=== PATIENT | female | born 1950 | race Caucasian/White ===

== ENCOUNTER 2019-02-09 15:57 | Inpatient (IN) ==
--- NOTE | 2019-02-09 16:54 | Diag Imaging Result Doc PS360 ---
EXAM: XRAY HIP UNILATERAL RT HISTORY: fall TECHNIQUE: Two views COMPARISON: None. FINDINGS: A subtle impacted fracture of the lateral aspect of right femoral neck is suspected. Additionally, there are may be a nondisplaced fracture of the lateral trochanter. No dislocation. Correlate clinically. Consider CT scan right hip. IMPRESSION: Suspect slightly impacted fracture of the right lateral femoral neck and possibly greater trochanter. Correlate clinically. Consider CT right hip. Electronically signed by Marianna Willingham 02/09/2019 4:51 PM
--- NOTE | 2019-02-09 16:55 | Diag Imaging Result Doc PS360 ---
EXAM: FEMUR MIN 2 VIEWS RIGHT HISTORY: fall TECHNIQUE: Two views. COMPARISON: None. FINDINGS: Slightly impacted. Fracture of the right femoral neck and possibly greater trochanter in history. The remainder of the femur shows no abnormalities. No dislocation. No effusion. IMPRESSION: Suspect mildly impacted right femoral neck fracture. Electronically signed by Marianna Willingham 02/09/2019 4:53 PM
--- NOTE | 2019-02-09 17:06 | PROVIDER DOCUMENTATION ---
This chart was entered by Citlaly Houston Scribe, acting as scribe for Jack Pardo MD. 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 Right side is non weight baring, minor ab rasion on R elbow. Denied R arm pain, head injury, or LOC. Quality of Pain: reports: aching Severity in ED: moderate Onset/Duration: just prior to arrival Timing: still present Modifying Factors: improves with: immobilization. worse with: movement Similar Symptoms Previously?: No Recently seen or treated by another doctor?: No - FALL INJURY Location of Pain/Injury: reports: other (Right hip) Pain Radiation: reports: no radiation Reason for Fall: reports: tripped (on curb) Loss of Consciousness: no loss of consciousness Review of Systems - Adult - REVIEW OF SYSTEMS - ADULT Constitutional: denies: fever, fatique, night sweats Eyes: reports: no symptoms reported Ears, Nose, Mouth & Throat: reports: no symptoms reported Cardiovascular: reports: no symptoms reported Respiratory: reports: no symptoms reported Gastrointestinal: reports: no symptoms reported Genitourinary: reports: no symptoms reported Musculoskeletal: reports: see HPI, joint pain (R hip) Integumentary: reports: other (r elbow) Neurological: denies: dizziness/vertigo, headache/migraines, slurred speech Psychiatric: reports: no symptoms reported Endocrine: reports: no symptoms reported Hematologic/Lymphatic: reports: no symptoms reported Allergic/Immunologic: reports: no symptoms reported All Other Systems: Reviewed and Negative Past History - Adult - PAST MEDICAL HISTORY-ADULT Review of Records: reports: Nursing Assessment Review, Medications Reviewed Major Childhood Illnesses: reports: denies history Cardiovascular: reports: denies history Respiratory: reports: denies history Gastrointestinal: reports: denies history Obstetrical/Gynecological: reports: denies history Genitourinary: reports: denies history Musculoskeletal: reports: denies history Neurological: reports: denies history Endocrine/Immune: reports: denies history Other Conditions: reports: denies history - IMMUNIZATION STATUS Childhood Immunizations: See Nurse Assessment Flu Vaccine: See Nurse Assessment - FAMILY HISTORY Family History: reviewed, not pertinent - SOCIAL HISTORY Smoking: non-smoker Physical Exam-Injury Related - Physical Exam-Injury Related Initial Vital Signs Reviewed: Yes General Appearance: appears well, alert, moderate distress Immobilization?: negative: backboard, C-collar Eyes: PERRL/EOMI, pink conjunctivae Head, Ears, Nose, Mouth & Throat: normocephalic/atraumatic, moist mucous membranes, normal ENT inspection Neck: non-tender, full range of motion, supple, normal inspection. negative: muscle spasm, nexus criteria negative, pain on movement, subcutaneous emphysema, swelling, trachial deviation Respiratory: chest non-tender, lungs clear, normal breath sounds, no pleuratic chest pain, no respiratory distress, no accessory muscle use Cardiovascular: normal peripheral pulses, regular rate, rhythm, no edema, no gallop, no JVD, no murmur Peripheral Pulses: dorsalis-pedis (R): 2+ Back Exam: normal inspection Extremity: other (pt has bilateral legs raised, limited range of motion to R hip due to severe pain, p is non weight baring on R side). 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, grossly normal Psych/Mental Status: normal mood/affect, normal thought content, normal thought process, oriented x 3 - Glascow Coma Score Best Eye Response ([place]): (4) open spontaneously Best Verbal Response ([place]): (5) oriented Best Motor Response ([place]): (6) obeys commands [place] Total: 15 Progress - PLAN OF CARE/RESULTS Progress/Plan/Lab Results: Vital Signs - 8 hr 02/09/19 18:36 02/09/19 18:50 02/09/19 19:00 Temperature 98.7 F Pulse Rate 85 Respiratory Rate 18 Blood Pressure 164/81 O2 Sat by Pulse Oximetry 99 99 98 02/09/19 19:02 02/09/19 19:10 02/09/19 19:29 Temperature Pulse Rate 80 Respiratory Rate 20 Blood Pressure 173/82 O2 Sat by Pulse Oximetry 97 98 96 02/09/19 19:30 02/09/19 19:40 02/09/19 19:50 Temperature Pulse Rate Respiratory Rate Blood Pressure O2 Sat by Pulse Oximetry 97 96 96 02/09/19 20:00 02/09/19 20:10 02/09/19 20:20 Temperature Pulse Rate Respiratory Rate Blood Pressure O2 Sat by Pulse Oximetry 95 97 96 02/09/19 20:30 02/09/19 20:40 02/09/19 20:50 Temperature Pulse Rate Respiratory Rate Blood Pressure O2 Sat by Pulse Oximetry 96 96 96 02/09/19 21:00 02/09/19 21:10 02/09/19 21:20 Temperature Pulse Rate Respiratory Rate Blood Pressure O2 Sat by Pulse Oximetry 95 96 96 02/09/19 21:30 02/09/19 21:40 02/09/19 21:50 Temperature Pulse Rate Respiratory Rate Blood Pressure O2 Sat by Pulse Oximetry 96 98 97 Laboratory Results - last 24 hr 02/09/19 02/09/19 02/09/19 19:00 19:00 19:00 WBC 8.99 RBC 4.52 Hgb 14.2 Hct 41.9 MCV 92.7 MCH 31.4 H MCHC 33.9 RDW Std Deviation 12.8 Plt Count 172 MPV 10.9 H Immature Gran % (Auto) 0.2 Neut % (Auto) 71.3 Lymph % (Auto) 20.9 [place] % (Auto) 7.0 Eos % (Auto) 0.4 Baso % (Auto) 0.2 Immature Gran # (Auto) 0.02 Neut # (Auto) 6.40 Lymph # (Auto) 1.88 [place] # (Auto) 0.63 H Eos # (Auto) 0.04 Baso # (Auto) 0.02 PT 13.4 INR 0.94 PTT (Actin FS) 36.3 Sodium 145 Potassium 3.9 Chloride 109 H Carbon Dioxide 23 L Anion Gap 13 BUN 17 Creatinine 0.7 Estimated GFR/1.73 m2 > 60 BUN/Creatinine Ratio 24 Glucose 106 H Calculated Osmolality 291 Calcium 9.4 Total Bilirubin 0.54 AST 14 ALT 8 L Alkaline Phosphatase 78 Total Protein 7.3 Albumin 4.4 Globulin 2.9 Albumin/Globulin Ratio 1.5 Orders Category Date Time Status Admit - [facility] Routine AdmDCTranf 02/09/19 23:04 Active Activity - Up with Assistance ORDERED Care 02/09/19 23:04 Active Intake and Output-Strict ORDERED Care 02/09/19 23:04 Active Nursing- MD Consult Request ROUTINE Care 02/09/19 23:04 Active Vital Signs Order Q 8-HR ASSESS Care 02/09/19 23:04 Active Z-Document. for Tele Applied ORDERED Care 02/09/19 23:04 Completed Physician/Provider Consults Routine Cons 02/09/19 23:04 Ordered Clear Liquid Diet Diet 02/09/19 20:08 Completed NPO Diet 02/10/19 00:01 Active CHEST-2 VIEWS [RAD] Stat Exams 02/09/19 18:[address] PELVIS W/O CONTRAST [CT] Stat Exams 02/09/19 17:11 Completed FEMUR MIN 2 VIEWS RIGHT [RAD] Stat Exams 02/09/19 16:06 Completed XRAY HIP UNILATERAL RT [RAD] Stat Exams 02/09/19 16:06 Completed BASIC METABOLIC PANEL [CHEM] Routine Lab 02/10/19 06:00 Ordered CBC WITH DIFF [HEME] Routine Lab 02/10/19 06:00 Ordered CBC WITH ELECTRONIC DIFF [HEME] Stat Lab 02/09/19 19:00 Completed COMPREHENSIVE METABOLIC PANEL [CHEM] Stat Lab 02/09/19 19:00 Completed PROTIME WITH INR [COAG] Stat Lab 02/09/19 19:00 Completed PTT [COAG] Stat Lab 02/09/19 19:00 Completed Cyclobenzaprine [Flexeril] Med 02/09/19 19:08 Discontinued 10 mg PO NOW ONE Morphine Med 02/09/19 23:04 Active 4 mg IV Q4H PRN PRN Ondansetron [Zofran] Med 02/09/19 23:04 Active 4 mg IV Q4H PRN PRN Telemetry [OM.EQ] Routine Oth 02/09/19 23:04 Active EKG [EKG] Stat Ther 02/09/19 18:40 Ordered Transfer/Admit Order [TRANSFER] Routine Transfer 02/09/19 21:28 Completed A/P: Fracture of greater trochanteric Right femur. Pain Result Diagrams: 02/09/19 19:00 02/09/19 19:00 - XRAY 1 XRAY: Bilateral XRAY Study: Hip Impression: Abnormal ( IMPRESSION: Suspect slightly impacted fracture of the right lateral femoral neck and possibly greater trochanter. Correlate clinically. Consider CT right hip. Electronically signed by Marianna Willingham 02/09/2019 4:51 PM) 2 XRAY: Right XRAY Study: Femur Impression: Abnormal ( EXAM: FEMUR MIN 2 VIEWS RIGHT HISTORY: fall TECHNIQUE: Two views. COMPARISON: None. FINDINGS: Slightly impacted. Fracture of the right femoral neck and possibly greater trochanter in history. The remainder of the femur shows no abnormalities. No dislocation. No effusion. IMPRESSION: Suspect mildly impacted right femoral neck fracture. Electronically signed by Marianna Willingham 02/09/2019 4:53 PM 02/09/19 1653 Interpreting Physician: Marianna Willingham MD Dictated Date/Time: 02/09/19 1644 cc: Gilmer Hinton MD; None,PCP) - CONSULTS/PCP/HOSPITALIST Notification #1 *Consult/PCP/Hospitalist*: Dr Wyman Time Discussed: 18:00 Consult Disposition: Admit #2 Consult: Dr griffin Time Discussed: 18:30 Consult Disposition: Admit Departure - Departure Date of Disposition Decision: 02/09/19 Time of Disposition Decision: 19:00 DIAGNOSIS: Femur fracture Disposition: ADMITTED INPATIENT 09 Certified Medical Emergency: Emergent Condition: Stable - Critical Care Note This patient required my direct & personal management of CC.: No Attestation - Physician/ MAURY Attestation Patient care was provided by Advanced Practice Provider:: No The physician spent face to face time with patient:: Yes Advanced Practice Provider documentation review:: Supervising physician onsite and consulted in the evaluation and care of this patient. The physician did have a face to face encounter with the patient. This chart was documented by the indicated scribe, (Citlaly Houston Scribe) and accurately reflects the services I performed and decisions made by me, Jack Pardo MD, as attested by the provider's signature.
--- NOTE | 2019-02-09 18:23 | Diag Imaging Result Doc PS360 ---
EXAM: CT PELVIS W/O CONTRAST HISTORY: fall TECHNIQUE: CT bony pelvis without contrast COMPARISON: None. FINDINGS: There is a fracture through the greater trochanter of the right femur. There is mild displacement. The fracture line extends to the upper portion of the femoral neck, but does not appear to involve the femoral neck. No other fracture or dislocation. No widening of the pubic symphysis. IMPRESSION: Large bone fragment involving the greater trochanter of the right hip This exam was performed using automated exposure control, adjustment of mA or kV according to patient size, and/or use of iterative reconstruction technique. Electronically signed by Gerry Saldana 02/09/2019 6:20 PM
[2019-02-09] MEDS ORDERED: FLEXERIL PO ONE (19:08)
[2019-02-09 19:21] LABS: BASO# 0.02 X1000 (0.0-0.2); BASO% 0.2 % (0.0-0.8); EOS# 0.04 X1000 (0.0-0.7); EOS% 0.4 % (0.0-10.0); HEMATOCRIT 41.9 % (37.0-47.0); HEMOGLOBIN 14.2 g/dL (12.0-16.0); IMM GRAN# 0.02 X1000 (0.0-0.04); IMM GRAN% 0.2 % (0.0-0.5); LYMPH# 1.88 X1000 (1.2-3.4); LYMPH% 20.9 % (20.5-51.1); MCH 31.4 PG (27-31); MCHC 33.9 g/dL (33-37); MCV 92.7 FL (81-99); MONO# 0.63 X1000 (0.11-0.59); MPV 10.9 FL (7.4-10.4); NEUT% 71.3 % (42.2-75.2); PLT 172 X1000 (130-400); RBC 4.52 XMIL (4.2-5.4); RDW 12.8 % (11.5-14.5); WBC 8.99 X1000 (4.8-10.8)
[2019-02-09 19:33] LABS: INR 0.94; PROTIME 13.4 Seconds (11.0-16.0)
[2019-02-09 19:34] LABS: PTT 36.3 Seconds (22.3-41.8)
[2019-02-09 19:46] LABS: AGAP 13; ALB/GLOB RATIO 1.5; ALBUMIN 4.4 g/dL (3.5-5.0); ALKALINE PHOSPHATASE 78 U/L (32-104); BUN 17 mg/dL (8-22); CALCIUM 9.4 mg/dL (8.8-10.2); CHLORIDE 109 mmol/L (98-107); COSMO 291; CREATININE 0.7 mg/dL (0.5-0.9); ESTIMATED GFR > 60; GLUCOSE 106 mg/dL (70-104); GOT 14 U/L (10-30); GPT 8 U/L (10-36); POTASSIUM 3.9 mmol/L (3.5-5.1); SODIUM 145 mmol/L (136-145); TCO2 23 mmol/L (25-35); TOTAL BILIRUBIN 0.54 mg/dL (0.20-1.00); TOTAL PROTEIN 7.3 g/dL (6.3-8.3)
--- NOTE | 2019-02-09 19:47 | Diag Imaging Result Doc PS360 ---
EXAM: CHEST-2 VIEWS HISTORY: fall pre surgery TECHNIQUE: Chest three views COMPARISON: None. FINDINGS: The lungs are hyperexpanded. The heart is borderline mildly prominent. The vessels are small. There are no infiltrates. No pleural effusions. IMPRESSION: Emphysema Electronically signed by Gerry Saldana 02/09/2019 7:44 PM
--- NOTE | 2019-02-09 21:45 | HISTORY AND PHYSICAL ---
PRIMARY CARE PHYSICIAN: None. CHIEF COMPLAINT: Fall. HISTORY OF PRESENTING ILLNESS: A 68-year-old female without any significant past medical history was apparently walking outside [employer] when somehow she got tripped over a raised area on the grounds. She stumbled and she fell on to her right hip region. She developed moderate amount of pain and subsequently had come to the emergency department. In the ED she was evaluated. She had imaging done which showed a fracture of the greater trochanter of the right femur. Her case was discussed with Orthopedics who recommended the patient be admitted for further evaluation management. At the time of my examination, patient denied any headache, vision changes, fevers, chills, chest pain, shortness of breath, hemoptysis, melena, weight changes but complained of right hip region pain. PAST MEDICAL HISTORY: None. PAST SURGICAL HISTORY: Hysterectomy. ALLERGIES: Sulfa and latex. CURRENT MEDICATIONS: None. SOCIAL HISTORY: 40 pack year history of smoking. Admits to social alcohol use. Denies any illicit drug use. FAMILY HISTORY: Positive for coronary disease in mother. REVIEW OF SYSTEMS: Fourteen point review system is as in HPI. Other systems negative. PHYSICAL EXAMINATION: GENERAL: Cooperative, friendly female. She is resting comfortably now. VITAL SIGNS: Temperature 98.1 degrees, pulse 82, respirations 20, blood pressure 165/81. HEENT: Extraocular movements intact. PERRLA. NECK: No masses. CHEST: Clear to auscultation. CARDIOVASCULAR: Regular rate and rhythm. ABDOMEN: Soft. Positive bowel sounds. EXTREMITIES: Right hip region tenderness. NEUROLOGIC: She is awake, alert, oriented x3. : No bladder distention. SKIN: Warm. LABORATORIES AND STUDIES: WBC is 8.99, hemoglobin 14.2, hematocrit 41.9, platelets 172,000. Sodium 145, potassium 3.9, chloride 103, CO2 23, BUN is 17, creatinine 0.7, glucose 106. Pelvic CT shows a fracture the greater trochanter of the right femur. ASSESSMENT: A 68-year-old female without any significant past medical apparently was walking outside [employer] earlier today. She somehow stumbled and fell onto her right hip region. She was brought to the emergency department. She had imaging done which did show a fracture of the greater trochanter of the right femur. Her case was discussed with Orthopedics who recommended admission for further management . 1. fracture of the greater trochanter of the right femur. 2. Ongoing tobacco abuse. PLAN: 1. We will admit patient to medical floor with telemetry. 2. Continue with pain control, antiemetics and gentle hydration. 3. Orthopedics already consulted. 4. Counseled patient on smoking cessation. 5. Continue with DVT prophylaxis with SCDs. 6. We will continue to follow and reassess and make further recommendation based on patient's clinical course. cc: Manohar Walsh MD MTDD
[2019-02-09] MEDS ORDERED: ZOFRAN IV PRN (23:04)
[2019-02-09] MEDS ORDERED: MORPHINE IV PRN (23:04)
[2019-02-10 04:59] LABS: URINE SOURCE CLEAN CATCH
[2019-02-10 05:35] LABS: BILIRUBIN URINE NEGATIVE (NEGATIVE); BLOOD URINE NEGATIVE (NEGATIVE); COLOR YELLOW; GLUCOSE URINE NEGATIVE (NEGATIVE); KETONE URINE NEGATIVE (NEGATIVE); LEUKOCYTES URINE NEGATIVE (NEGATIVE); NITRITE URINE NEGATIVE (NEGATIVE); PH URINE 6.5; PROTEIN URINE NEGATIVE (NEGATIVE); SP GRAVITY URINE 1.007; TURBIDITY URINE CLEAR (CLEAR); UR EPITHELIAL CELLS <10 /HPF (<10); URINE BACTERIA NEGATIVE /HPF; URINE RBC <10 /HPF (<10); URINE WBC <10 /HPF (<10); UROBILINOGEN URINE NORMAL (NORMAL)
[2019-02-10 06:44] LABS: BASO# 0.02 X1000 (0.0-0.2); BASO% 0.4 % (0.0-0.8); EOS# 0.09 X1000 (0.0-0.7); EOS% 1.6 % (0.0-10.0); HEMATOCRIT 38.4 % (37.0-47.0); HEMOGLOBIN 12.9 g/dL (12.0-16.0); LYMPH# 1.49 X1000 (1.2-3.4); LYMPH% 27.1 % (20.5-51.1); MCH 31.2 PG (27-31); MCHC 33.6 g/dL (33-37); MONO# 0.56 X1000 (0.11-0.59); MONO% 10.2 % (1.7-9.3); MPV 11.2 FL (7.4-10.4); NEUT# 3.34 X1000 (1.4-6.5); NEUT% 60.7 % (42.2-75.2); PLT 134 X1000 (130-400); RBC 4.13 XMIL (4.2-5.4); RDW 12.7 % (11.5-14.5)
[2019-02-10 07:01] LABS: AGAP 9; BUN 12 mg/dL (8-22); CHLORIDE 108 mmol/L (98-107); COSMO 283; CREATININE 0.7 mg/dL (0.5-0.9); ESTIMATED GFR > 60; GLUCOSE 108 mg/dL (70-104); SODIUM 142 mmol/L (136-145); TCO2 25 mmol/L (25-35)
--- NOTE | 2019-02-10 13:17 | CONSULTATION ---
DATE OF CONSULTATION: 02/10/2019 CHIEF COMPLAINT: Fall. HISTORY OF PRESENT ILLNESS: This is a 68-year-old female who was walking [place] [employer], and she tripped and fell on the ground on her right hip. She reports she immediately had pain in that hip and was unable to walk normally. She presented to the emergency department at [place] where x-rays were performed. X-ray showed an intertrochanteric fracture of the right femur. Orthopedics was consulted to see the patient. PAST MEDICAL HISTORY: The patient denies any past medical history and does not take any medications. PAST SURGICAL HISTORY: She has had hysterectomy. ALLERGIES: She is allergic to sulfa and latex. CURRENT MEDICATIONS: None. SOCIAL HISTORY: The patient reports social alcohol use. She denies drug use. She reports she does smoke daily. FAMILY HISTORY: Positive for CAD. REVIEW OF SYSTEMS: Fourteen point review of systems was performed and pertinent positives were listed in HPI. PHYSICAL EXAMINATION: General: Patient is awake, alert, and sitting in the bed cooperative. Vital Signs: Temperature 98.4 degrees, pulse rate 73, respiratory rate 16, blood pressure 135/51, and oxygen is 97% on room air. HEENT: Head is atraumatic, normocephalic. Eyes are equal, round, and reactive. Neck: Supple. Chest: There is equal expansion rise and fall. Cardiovascular: Regular rate and rhythm. Abdomen: Soft and nontender. Extremities: There is right anterior joint line tenderness to the hip. There is negative Homans sign. There is no redness or signs of infection. There are good pedal pulses. There is slight shortening of the right leg with external rotation. LABORATORY DATA: White blood cell 5.5, hemoglobin 12.9, hematocrit 38.4, and platelets 134,000. INR 0.94. Sodium 142, potassium 4.0, chloride 108, BUN 12, creatinine 0.7, and glucose 108. Urinalysis negative. ASSESSMENT: Right intertrochanteric fracture of the right femur. PLAN: We will plan on placing a trochanteric fixation nail into the right femur sometime today. The patient agrees with this plan. The risks and benefits of surgery was went over with the patient. She wishes to proceed. The risks include , damage to tendon, nerve or blood vessel, and also the risk of worsening pain. Dictated by ALMA DELIA Van for Nilton Syed MD cc: ALMA DELIA Van MD
[2019-02-10] MEDS ORDERED: KEFZOL 1 GM/D5W 1 GM/50 ML IVPB ONE (14:37)
[2019-02-10] MEDS ORDERED: DIPRIVAN 1% ONE ×2 (14:38→14:53)
[2019-02-10] MEDS ORDERED: FENTANYL ONE (14:46)
[2019-02-10] MEDS ORDERED: EPHEDRINE ONE (15:12)
[2019-02-10] MEDS ORDERED: XYLOCAINE-MPF 2% ONE (15:12)
[2019-02-10] MEDS ORDERED: DECADRON ONE (15:17)
[2019-02-10] MEDS ORDERED: ZOFRAN ONE (15:17)
--- NOTE | 2019-02-10 15:45 | OPERATIVE NOTE ---
PROCEDURE DATE: 02/10/2019 PREOPERATIVE DIAGNOSIS: Intertrochanteric right hip fracture. POSTOPERATIVE DIAGNOSIS: Intertrochanteric right hip fracture. PROCEDURE: Closed reduction, short TFN fixation right hip. SURGEON: Arun Syed MD. AMERICAN STUDIES PROFESSOR: ALMA DELIA Van. Mr. Kemp was necessary for proper retraction and manipulation of the leg during the case. ANESTHESIA: Spinal. COMPLICATION: None. PROCEDURE IN DETAIL: This 68-year-old female presents for surgical stabilization of right hip. Risks, benefits, and no guarantees were discussed. She was taken to the operating room and satisfactory anesthesia obtained. She was transferred to the [place] table and the C-arm used to verify the fracture. A fracture through the greater trochanter which extended down into the intertrochanteric region but not fully across the calcar was noted on both fluoroscopic imaging, as well as preop CT and x-rays. This was felt to be fracture at risk for propagation throughout the calcar and stabilization elected after discussion with the patient. After a proper time-out, the hip was prepped and draped in usual sterile fashion. The C-arm was used to localize an entry portal roughly 3-4 cm above the lesser trochanter and a small incision made. TFN guide pin was advanced through the tip of the trochanteric fracture and down the intramedullary canal. This was reamed with the injury reamer. A short TFN nail was then inserted through the proposed tunnel intramedullary. An accessory lateral portal was made distal to the entry portal for placement of the helical blade. Under multiplanar image guidance using the provided guides, a pin was placed across the nail and into the central aspect of the femoral neck and head with care taken to avoid any articular penetration. This was measured and reamed and an 85 length helical blade inserted into the proximal femur. The guide was then used to place a static distal locking screw through the accessory lateral incision measuring roughly 36 mm in length. Afterwards, the guide was removed and the fluoroscopic unit used to visualize acceptable reduction and hardware placement without any joint penetration. The wounds were then irrigated and closed in layers with 2-0 Vicryl and skin jamilah. Sterile dressings completed the closure and the patient was recovered from anesthesia and transferred to the recovery room in stable condition. No intraoperative complications were noted. Instrument count and sponge count was correct at the time of closure. cc: Nilton Syed MD
[2019-02-10] MEDS ORDERED: MILK OF MAGNESIA PO PRN (15:54)
[2019-02-10] MEDS ORDERED: ZOFRAN IV PRN (15:54)
[2019-02-10] MEDS ORDERED: MORPHINE IV PRN (15:54)
[2019-02-10] MEDS ORDERED: HALDOL IV PRN (16:00)
[2019-02-10] MEDS: NS 1,000 ML IV SCH (16:51)
[2019-02-10] MEDS: OXY IR PO PRN (18:12)
--- NOTE | 2019-02-10 18:12 | PROGRESS NOTE ---
DATE: 02/10/2019 SUBJECTIVE: This afternoon, Ms. Adams referred to be doing fairly okay. She just came out of surgery. OBJECTIVE: Vitals: Blood pressure is 132/60, pulse 88, respiration is 20, temperature 97.8 degrees, and the patient was saturating about 98% on room air. General: Ms. Adams is a 68-year- old female. She is in bed, no distress. Mucosa is pink and moist. Anicteric. Acyanotic. Neck is supple. No JVD. Chest was clear to auscultation. Cardiovascular: Regular rate and rhythm. No murmurs, no rubs, no gallops. Gastrointestinal: Abdomen was soft, nontender. Bowel sounds present. Genitourinary was unremarkable. Extremities: No pedal edema. Distal pulses are present. Musculoskeletal: There is a fresh sterilely covered surgical wound on the right lateral hip. Central Nervous System: Patient is awake and alert and oriented. IMAGING STUDIES: Have been reviewed. A pelvic CT scan before surgery did reveal a large bone fragment involving the greater trochanteric of the right hip. Surgical report has been reviewed. The patient is status post closed reduction with short TFN fixation of right hip. ASSESSMENT: 1. Intertrochanteric right hip fracture status post closed reduction with short trochanteric fixation nail (TFN) fixation. This was done by Dr. Syed. 2. Ongoing tobacco abuse. Patient has been counseled. 3. Mild clinical volume depletion. We will continue with gentle hydration. PLAN: In general, I think Ms. Adams is doing fairly okay. She is just immediate post orthopedic intervention. She seems to be doing well. We will continue with the gentle hydration overnight, get physical therapy to start working with her tomorrow and follow with further recommendations from Orthopedic team. cc: Alfredo Mulligan MD [facility]
[2019-02-10] MEDS: COLACE PO SCH (21:22)
[2019-02-10] MEDS: TYLENOL PO SCH (21:22)
[2019-02-10] MEDS: KEFZOL 1 GM/D5W 1 GM/50 ML IVPB IV SCH (22:02)
[2019-02-11] MEDS: TYLENOL PO SCH ×3 (04:56→21:16)
[2019-02-11] MEDS: NS 1,000 ML IV SCH ×2 (05:03→16:06)
[2019-02-11] MEDS: OXY IR PO PRN (05:29)
[2019-02-11] MEDS: KEFZOL 1 GM/D5W 1 GM/50 ML IVPB IV SCH ×2 (05:30→15:10)
[2019-02-11] MEDS: XARELTO PO SCH (05:30)
[2019-02-11 06:24] LABS: AGAP 11; BUN 11 mg/dL (8-22); CHLORIDE 103 mmol/L (98-107); COSMO 274; CREATININE 0.8 mg/dL (0.5-0.9); ESTIMATED GFR > 60; GLUCOSE 115 mg/dL (70-104); POTASSIUM 4.1 mmol/L (3.5-5.1); SODIUM 137 mmol/L (136-145); TCO2 23 mmol/L (25-35)
[2019-02-11 07:49] LABS: HEMATOCRIT 35.9 % (37.0-47.0); HEMOGLOBIN 11.7 g/dL (12.0-16.0)
--- NOTE | 2019-02-11 08:00 | PROGRESS NOTE ---
DATE: 02/11/2019 Ms. Adams is seen status post surgical fixation of her intertrochanteric hip fracture. At the present time, she is afebrile with stable vital signs. Her bandages are clean and dry. She can be mobilized partial weightbearing without other restrictions. She can be transferred to the rehab center when a bed is available. I will need to see her in roughly 10 to 14 days for staple removal and x-rays. She can follow up with me in the interim for any additional needs or concerns. We will be available upon request at this point. cc: Nilton Syed MD
[2019-02-11] MEDS: FERROUS SULFATE PO SCH (09:10)
[2019-02-11] MEDS: PERIDEX MT SCH ×2 (09:10→21:16)
--- NOTE | 2019-02-11 18:06 | PROGRESS NOTE ---
DATE: 02/11/2019 SUBJECTIVE: Today Ms. Adams refers to be doing a lot better. She has been able to get up and take a few steps, and she was sitting up in a chair at the time of the encounter. She denies any complaints. The patient has also been seen early on today by Orthopedics. OBJECTIVE: Vital signs: Blood pressure is 109/49, pulse is 72, respirations 16, temperature 98.5 degrees. General: Ms. Adams is a 68-year-old female. She was sitting up in a chair. She was not in any distress. Mucosa is pink and moist. Anicteric. Acyanotic. Neck is supple. Chest has good air entry bilateral. There were no crepitations, no rhonchi. Cardiovascular: Regular rate and rhythm. No murmurs, no rubs, no gallops. Abdomen: Soft, nontender. Bowel sounds are present. Extremities: No pedal edema. The right hip still has the sterile dressing over the surgical sites. They still look clean. LABORATORY DATA: Hemoglobin is 11.7, hematocrit of 35.9. Chemistry is also reviewed and is completely normal. ASSESSMENT: 1. Intertrochanteric right hip fracture status post closed reduction and short trochanteric fixation nail (TFN) fixation by Dr. Syed. Today is day 1 postoperatively. The patient is doing a lot better, having physical therapy as well. 2. Ongoing tobacco abuse. Patient has been counseled. 3. Clinical volume depletion, improved. DISPOSITION: We are pending rehabilitation arrangement for Ms. Adams to be discharged. Hopefully we can get her out tomorrow. cc: Alfredo Mulligan MD
[2019-02-11] MEDS: NICODERM PATCH TD SCH (21:16)
[2019-02-11] MEDS: COLACE PO SCH (21:16)
[2019-02-12] MEDS: XARELTO PO SCH ×2 (04:33→05:59)
[2019-02-12] MEDS: TYLENOL PO SCH ×2 (04:33→12:32)
[2019-02-12] MEDS: NS 1,000 ML IV SCH (05:12)
[2019-02-12 06:32] LABS: HEMATOCRIT 33.5 % (37.0-47.0); HEMOGLOBIN 10.9 g/dL (12.0-16.0)
[2019-02-12] MEDS: NICODERM PATCH TD SCH (09:29)
[2019-02-12] MEDS: FERROUS SULFATE PO SCH (09:29)
[2019-02-12] MEDS: PERIDEX MT SCH (09:29)
--- NOTE | 2019-02-12 15:29 | DISCHARGE SUMMARY ---
ADMISSION DATE: 02/09/2019 DISCHARGE DATE: 02/12/2019 DISPOSITION: [facility]. FOLLOW-UP: Will be with Dr. Syed. CONSULTATION DURING THIS ADMISSION: Orthopedics was consulted. Patient was seen by Dr. Syed. INVASIVE PROCEDURES DONE DURING THIS ADMISSION: A closed reduction and short TFN fixation right hip was done by Dr. Syed on 02/10/2019. IMAGING STUDIES OF SIGNIFICANCE: X-ray of the right femur showed suspected mildly impacted right femoral neck fracture. X-ray of the hip showed the same as above. A pelvic CT scan did show a large bone fragment involving the greater trochanter of the right hip. A chest x-ray did show emphysema. ADMISSION DIAGNOSES: 1. Fracture of the greater trochanteric of the right femur. 2. Ongoing tobacco abuse. DIAGNOSES AT THE TIME OF DISCHARGE: 1. Right intertrochanteric hip fracture status post closed reduction and short trochanteric fixation nail (TFN)fixation by Dr. Syed. Today is day 2 postoperative. The patient is doing extremely well. She has been getting physical therapy, and she will be going to rehabilitation. 2. Ongoing tobacco abuse. Patient has been counseled. 3. Emphysema. The patient is clinically asymptomatic. She has been advised to follow up with Pulmonary Medicine, and tobacco cessation has been discussed. 4. Clinical volume depletion, improved. DISCHARGE MEDICATIONS: 1. Oxycodone 5 mg p.o. q.3 h. p.r.n. 2. Iron sulfate 325 p.o. daily. 3. Rivaroxaban 10 mg p.o. q.24 h. 4. Colace 200 p.o. at bedtime. PRESENTING COMPLAINT: Fall. HISTORY OF PRESENTING COMPLAINT: Ms. Adams is a 68-year-old female with seemingly no past medical history ,except for tobacco use, who came to the emergency department on 02/09/2010 19 after a trip and falling outside a [employer] store. The patient was not able to get up, was brought to the emergency department where she was initially evaluated, and was found to have a broken right hip. Ms. Adams was subsequently admitted for further medical care. HOSPITAL COURSE: The patient was admitted to the medical floor, was adequately hydrated and prepped for surgery. Orthopedics evaluated Ms. Adams on the same day. Dr. Syed subsequently took her to OR intervention was successful. Postoperatively Ms. Adams was able to do a couple sessions of physical therapy here in the hospital, which she tolerated well. During the hospital course, we did stress the findings of the chest x-ray, which was the emphysema, and the need for her to do tobacco cessation. This morning, Ms. Adams referred to be doing fairly okay. No new complaints. PHYSICAL EXAMINATION: Her vitals have been evaluated. Blood pressure is 118/47, pulse is, respirations 20, temperature 98.4 degrees. Physical exam is also unremarkable except for mildly tenderness in examining the right hip. There are still some sterile dressings over the hip, which look clean. DIAGNOSTIC STUDIES: The patient blood work has also been reviewed. DISCHARGE STATUS AND INSTRUCTIONS: Ms. Adams is clinically stable for discharge today. She is going to be going to [facility]. All the discharge instructions have been discussed with her. As I said, tobacco cessation has been discussed thoroughly with her, and she voiced understanding. COORDINATION TIME: Time spent for discharge is 36 minutes. cc: MD Nilton Fabian MD
[2019-02-12 16:19] VITALS: BP 89/69
== END 2019-02-12 16:28 | DRG 481 ==
LOC: SUPCPDRO → ED 15:57 → 4N 21:58 → SUATTDRO 21:58
PROVIDERS: ATTEND Internal Medicine
CPT/HCPCS: 71020; 71046; 72192; 73502; 73552; 76000; 80048; 80053; 81001; 85014; 85018; 85025; 85610; 85730; 93005; 94761; 94799; 97110; 97116; 97162; 97530; 99285; A9270; J0690; J1100; J2270; J2405; J3010; J7030